=== PATIENT | female | born 1990 | race Asian ===

== ENCOUNTER 2018-01-05 14:29 | Emergency (ER) | payer OTHER ==
[2018-01-05] MEDS ORDERED: NS 1,000 ML IV ONE (14:36)
--- NOTE | 2018-01-05 14:44 | EDPHY ---
General Time Seen by Provider: 01/05/18 14:36 Narrative: CHIEF COMPLAINT: Syncope HISTORY OF PRESENT ILLNESS: Patient arrives by EMS and is seen at time of arrival. She reports loss of consciousness at a restaurant just prior to arrival. No chest pain. She was feeling somewhat lightheaded she was walking back from getting some water. She does not remember the exact details of the event. She has no complaints of pain pre or post incident. She has never had this before. No seizure history. She has no injury to the tongue. No incontinence. She states she has a known murmur that she has had evaluated several times in the past few years. She says that she did drink heavily last night felt somewhat dehydrated and "hung over."No fever. No exertional pain. No other associated complaints or modifying factors. Denies any illicit substance use. REVIEW OF SYSTEMS: 10 systems were reviewed and negative with the exception of the elements mentioned in the history of present illness. PCP: [facility] SPECIALISTS: [facility] PAST MEDICAL HISTORY: Uncomplicated PAST SURGICAL HISTORY: Post surgical history SOCIAL HISTORY: Nonsmoker. Occasional alcohol use. 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 Denies any IV drug use FAMILY HISTORY: Noncontributory EXAMINATION: General Appearance: Alert, no distress Head: normocephalic, atraumatic Eyes: Pupils equal and round, no conjunctival pallor or injection. No nystagmus. EOM symmetric. ENT, Mouth: Mucous membranes moist Neck: Normal inspection, supple, non-tender Respiratory: Lungs are clear to auscultation Cardiovascular: Regular rate and rhythm. Grade 1 systolic murmur. Gastrointestinal: Abdomen is soft and nontender Back: non-tender, no bony abnormalities Neurological: GCS 15. A&O, nonfocal, normal gait. Strength is symmetric in all 4 limbs. No pronator drift. Normal [id number]. Light sensory is symmetric in the upper lower extremities. Skin: Warm and dry, no rash. No petechiae or purpura Extremities: Nontender, no pedal edema Psychiatric: Mood and affect normal DIFFERENTIAL DIAGNOSES: Including but not limited to syncope, orthostasis, bradycardia, aortic stenosis , seizure, ACS, PE MDM: 2:35 p.m. Likely syncopal episode after short period of ambulation. No chest pain preceding this. She did feel lightheaded but describes no vertigo. No headache. No achiness. No injury to the tongue. No incontinence. There was no seizure-like activity described by EMS. She is awake alert no acute distress. EKG is currently being obtained for laboratory studies pending. 3:15 p.m. Electrolytes and laboratory studies are within normal limits including negative troponin. She remains awake alert no acute distress. Vital signs remained stable. I have discussed the case with rack production worker Dr. Zelaya. He will provide consultation here in the emergency department. 3:[address] Zelaya is at bedside evaluating the patient. 3:[address] Zelaya has evaluated the patient recommends admission the hospital for observation PCU bed. I will discuss with hospitalist. She has consented to admission. 3:40 p.m. Case discussed with hospitalist Dr. Adrianne Malone. She will admit the patient to her service. The patient has been stable condition. EKG interpretation: Dr. Blair Sinus rhythm with trigeminy SUPERVISION: Patient was independently examined, but I discussed the case with my secondary supervising physician Dr. Blair CONSULTATION: - Objective Allergies/Adverse Reactions: No Known Allergies Allergy (Unverified 01/05/18 14:39) Home Medications: Medication Instructions Recorded Ortho Tri-Cyclen Lo Tablet 01/05/18 Departure - Departure Disposition: [facility] Inpatient Acute Clinical Impression: Ventricular ectopic beat Syncope Qualifiers: Syncope type: unspecified Qualified Code(s): R55 - Syncope and collapse Condition: Good Referrals: Patient,NotPresent [Primary Care Provider] - As per Instructions
[2018-01-05 15:09] LABS: PLATELET COUNT 266 10^3/uL (150-400)
--- NOTE | 2018-01-05 16:34 | PDCARCONS ---
Cardiology Consult Reason for Consult: Syncope Chief Complaint: passed out Requesting Physician: ER/hospitalist team History of Present Illness: Patient is a 27 y/o female with unremarkable past medical history (no HTN, HLP, DM, or CAD), who presented to [facility] ER via EMS after syncopal event. No symptoms similar to this in the past. ECG in the ER today with normal sinus rhythm with ventricular trigemeny noted. There was also some QT prolongation noted (487 ms) . No family history of premature CAD, but HTN does run in the family. No sudden cardiac has been noted to the family. No cardiovascular complaints of chest pains or pressure. No PND or orthopnea. Patient was up until about 3 am, drinking moderately heavy. She did attempt to hydrate with water prior to bed, as well as while at restaurant. At the restaurant, while standing, the patient began to feel odd, and attempted to get to a place to sit, but passed out. No trauma from event (she reportedly passed out into someone's lap). No recollection of the event. No seizure like activity was noted. No loss or bowel or bladder function. In the ER, the patient is receiving her second liter of fluid (and has yet to void). ECG with sinus rhythm and ventricular ectopy noted. Telemetry with ventricular trigeminy noted. No pj ST/T wave changes noted. There was, as mentioned above, QTc prolongation of 487 ms. Remainder of the 12 point review of systems was unremarkable History Information - Allergies/Home Medication List Allergies/Adverse Reactions: No Known Allergies Allergy (Verified 01/05/18 16:18) Home Medications: Nuvaring 1 destinee VG Q7D 01/05/18 [Last Taken Unknown] Vitamin B Complex [Vitamin B Complex (OTC)] 1 each PO DAILY 01/05/18 [Last Taken Unknown] I have personally reviewed and updated: family history, medical history, social history, surgical history Past Medical History: - Past Medical History no pertinent PMH - Surgical History Reports: no pertinent surgical hx - Family History Positive for: hypertension - Social History Smoking Status: Never smoked Alcohol Use: Occasionally (reportedly heavy last nigth) Drug Use: None Cardiac History - Cardiac History Cardiac Risk Factors: none Timing/Duration: Minutes Severity: severe Severity Scale: 10 Activities at Onset: activity Modifying Factors: improves with: lying down Associated Symptoms: syncope Physical Exam Physical Exam: Temp Pulse Resp BP Pulse Ox 36.5 C 68 18 123/72 H 97 01/05/18 14:39 01/05/18 14:39 01/05/18 14:39 01/05/18 14:39 01/05/18 14:39 Constitutional: no apparent distress, appears nourished, not in pain Eyes: PERRL, EOMI Ears, Nose, Mouth, Throat: moist mucous membranes, ears appear normal Cardiovascular: regular rate and rhythym, systolic murmur (soft (I/) ), pulses symmetric bilaterally, No JVD, No edema Peripheral Pulses: 2+: dorsalis-pedis (R), dorsalis-pedis (L) Respiratory: no respiratory distress, clear to auscultation Gastrointestinal: normoactive bowel sounds Skin: warm Musculoskeletal: full muscle strength, no muscle tenderness, normal joint ROM Neurologic: AAOx3, sensation intact bilaterally, CN II-XII Intact Psychiatric: interacting appropriately, not anxious, not encephalopathic Lab and Imaging 01/05/18 14:58 01/05/18 14:58 WBC 7.72 10^3/uL (3.80-9.50) 01/05/18 14:58 RBC 4.42 10^6/uL (4.18-5.33) 01/05/18 14:58 Hgb 13.7 g/dL (12.6-16.3) 01/05/18 14:58 Hct 40.8 % (38.0-47.0) 01/05/18 14:58 MCV 92.3 fL (81.5-99.8) 01/05/18 14:58 MCH 31.0 pg (27.9-34.1) 01/05/18 14:58 MCHC 33.6 g/dL (32.4-36.7) 01/05/18 14:58 RDW 12.8 % (11.5-15.2) 01/05/18 14:58 Plt Count 266 10^3/uL (150-400) 01/05/18 14:58 MPV 9.1 fL (8.7-11.7) 01/05/18 14:58 Neut % (Auto) 77.1 % (39.3-74.2) H 01/05/18 14:58 Lymph % (Auto) 17.7 % (15.0-45.0) 01/05/18 14:58 [place] % (Auto) 4.1 % (4.5-13.0) L 01/05/18 14:58 Eos % (Auto) 0.4 % (0.6-7.6) L 01/05/18 14:58 Baso % (Auto) 0.4 % (0.3-1.7) 01/05/18 14:58 Nucleat RBC Rel Count 0.0 % (0.0-0.2) 01/05/18 14:58 Absolute Neuts (auto) 5.95 10^3/uL (1.70-6.50) 01/05/18 14:58 Absolute Lymphs (auto) 1.37 10^3/uL (1.00-3.00) 01/05/18 14:58 Absolute Monos (auto) 0.32 10^3/uL (0.30-0.80) 01/05/18 14:58 Absolute Eos (auto) 0.03 10^3/uL (0.03-0.40) 01/05/18 14:58 Absolute Basos (auto) 0.03 10^3/uL (0.02-0.10) 01/05/18 14:58 Absolute Nucleated RBC 0.00 10^3/uL (0-0.01) 01/05/18 14:58 Immature Gran % 0.3 % (0.0-1.1) 01/05/18 14:58 Immature Gran # 0.02 10^3/uL (0.00-0.10) 01/05/18 14:58 Sodium 139 mEq/L (135-145) 01/05/18 14:58 Potassium 3.9 mEq/L (3.3-5.0) 01/05/18 14:58 Chloride 105 mEq/L (97-110) 01/05/18 14:58 Carbon Dioxide 24 mEq/l (22-31) 01/05/18 14:58 Anion Gap 10 mEq/L (8-16) 01/05/18 14:58 BUN 14 mg/dL (7-23) 01/05/18 14:58 Creatinine 0.7 mg/dL (0.6-1.0) 01/05/18 14:58 Estimated GFR > 60 01/05/18 14:58 Glucose 89 mg/dL (70-100) 01/05/18 14:58 Calcium 8.4 mg/dL (8.5-10.4) L 01/05/18 14:58 POC Troponin I 0.00 ng/mL (0.00-0.08) 01/05/18 15:00 Beta HCG, Qual NEGATIVE 01/05/18 14:58 Visualized and Interpreted Chest x-ray results: Yes Chest X-ray Interpretation: no infiltrate, normal, normal heart size Visualized and Interpreted EKG results: Yes EKG Interpretation: Positive for: normal sinsus rhythm, NS ST wave abnormalities , other (QTc prolongation) Telemetry: sinus rhythm with ventricular trigeminy A/P Assessment: Patient is a 27 y/o female with unremarkable past medical history, who reportedly was out late last night with moderate alcohol consumption (...little bit of everything...). Syncopal event was noted while standing at restaurant this morning. EMS was called and transported the patient to the ER. Two liters of fluid were dosed without need to void. Labs in the ER were grossly normal (no pj electrolyte abnormalities were appreciated). ECG with mild prolongation of the QTc (479 ms) and ventricular trigeminy. Patient without awareness of the arrhythmia. Plan: Given the severity of the symptom (pj syncope) with mild prolongation of the QTc and the ventricular ectopy noted, cardiology with recommendations for 23 hour observation, but we were also accepting of the patient's reassessment of how she is feeling after the second liter of fluid completed. Would monitor telemetry for further ectopy/arrhythmias. Consideration for echocardiography given the soft murmur. UPDATE: Patient is wanting to go home (the second liter has finished) She is having no pj symptoms at present Cardiology does recommend that she follow up with cardiology in the outpatient setting for repeat ECG and possible 48 hour holter versus 30 day cardionet. Would reiterate our desire for echo (this was potentially an outpatient procedure regardless) given the soft murmur and the event that was noted today. Patient understands the risks of leaving without further passive testing ( specifically, ongoing telemetry) and the ER discussed cardiology recommendations once again prior to her exodus.
[2018-01-05 16:53] VITALS: BP 125/75
--- NOTE | 2018-01-11 21:21 | CPEKG ---
Test Reason : OPEN Blood Pressure : / mmHG Vent. Rate : 065 BPM Atrial Rate : 000 BPM P-R Int : 122 ms QRS Dur : 105 ms QT Int : 468 ms P-R-T Axes : 033 067 015 degrees QTc Int : 487 ms Sinus rhythm Ventricular trigeminy Borderline prolonged QT interval Confirmed by Violeta Chi ([id number]) on 01/11/2018 9:21:00 PM Referred By: Confirmed By:Violeta Chi
== END 2018-01-05 16:53 | disposition still patient (30) ==
LOC: EDUNIT# → UNDOADMOB 15:35
DX: R55 Syncope and collapse (principal); E86.9 Volume depletion, unspecified
CPT/HCPCS: 84484-PO